=== PATIENT | female | born 1950 | race American Indian/Alaskan Native ===

== ENCOUNTER 2018-02-06 12:17 | Emergency (ER) | payer MEDICARE ==
[2018-02-06 13:39] VITALS: BP 152/119
[2018-02-06 14:33] LABS: Basophils # (Auto) 0.1 K/mm3 (0.0-0.1); Basophils % (Auto) 1.1 % (0.0-1.8); Eosinophils # (Auto) 0.2 K/mm3 (0.0-0.4); Eosinophils % (Auto) 3.7 % (0.0-4.3); Hematocrit 38.4 % (30.3-42.9); Hemoglobin 12.5 gm/dl (10.1-14.3); Lymphocytes # (Auto) 1.2 K/mm3 (1.2-5.4); Lymphocytes % (Auto) 19.8 % (13.4-35.0); Mean Corpuscular HGB Conc 32 % (30-34); Mean Corpuscular Hemoglobin 31 pg (28-32); Mean Corpuscular Volume 94 fl (79-97); Monocytes # (Auto) 0.4 K/mm3 (0.0-0.8); Platelet Count 259 K/mm3 (140-440); Red Blood Count 4.09 M/mm3 (3.65-5.03); Red Cell Distribution Width 15.1 % (13.2-15.2)
[2018-02-06 14:42] LABS: Amphetamine Screen,Urine PRESUMPTIVE NEGATIVE; Benzodiazepines Screen,Urine PRESUMPTIVE NEGATIVE; Bilirubin,Urine NEG (Negative); Blood,Urine NEG (Negative); Cannabinoid Screen,Urine PRESUMPTIVE NEGATIVE; Cocaine Screen,Urine PRESUMPTIVE NEGATIVE; Color,Urine Yellow (Yellow); Methadone Screen,Urine PRESUMPTIVE NEGATIVE; Mucus,Urine 3+ /HPF; Opiate Screen,Urine PRESUMPTIVE NEGATIVE; Protein,Urine <15 mg/dL mg/dL (Negative)
[2018-02-06 14:44] LABS: Calcium 9.5 mg/dL (8.4-10.2)
--- NOTE | 2018-02-06 20:08 | Emergency Department Report ---
ED Psych HPI - General Chief Complaint: Psych Stated Complaint: PSYCHIATRIC MED REFILL Time Seen by Provider: 02/06/18 20:07 Source: patient Mode of arrival: Ambulatory Limitations: No Limitations - History of Present Illness Initial Comments: Patient is here for the refill of her Psychiatric medication which is about to run out. She has no medical complaint. Associated Psychiatric Symptoms: auditory hallucinations History of same: Yes Quality: constant Improves With: medication Worsens With: none Associated Symptoms: denies other symptoms Treatments Prior to Arrival: none - Related Data Previous Rx's Medication Instructions Recorded Last Taken Type Benztropine [Cogentin] 1 mg PO BID #60 tab 02/06/18 Unknown Rx risperiDONE [RisperiDONE] 3 mg PO QHS #30 tablet 02/06/18 Unknown Rx Allergies Allergy/AdvReac Type Severity Reaction Status Date / Time No Known Allergies Allergy Verified 02/06/18 13:32 ED Review of Systems ROS: Stated complaint: PSYCHIATRIC MED REFILL Other details as noted in HPI Comment: All other systems reviewed and negative Constitutional: denies: chills, fever Eyes: denies: eye pain ENT: denies: ear pain Respiratory: denies: cough, shortness of breath Cardiovascular: denies: chest pain, palpitations, dyspnea on exertion Endocrine: no symptoms reported Gastrointestinal: denies: abdominal pain, nausea, vomiting, diarrhea, constipation Genitourinary: denies: urgency, dysuria, hematuria Musculoskeletal: denies: back pain Skin: denies: rash, lesions Neurological: denies: headache, weakness, numbness Psychiatric: denies: anxiety, depression Hematological/Lymphatic: denies: easy bleeding, easy bruising ED Past Medical Hx - Past Medical History Previous Medical History?: Yes Hx Psychiatric Treatment: Yes (schizophrenia) Hx Asthma: Yes - Surgical History Past Surgical History?: No - Social History Smoking Status: Never Smoker Substance Use Type: None - Medications Home Medications: Home Medications Medication Instructions Recorded Confirmed Last Taken Type Benztropine [Cogentin] 1 mg PO BID #60 tab 02/06/18 Unknown Rx risperiDONE [RisperiDONE] 3 mg PO QHS #30 tablet 02/06/18 Unknown Rx ED Physical Exam - General Limitations: No Limitations General appearance: alert, in no apparent distress - Head Head exam: Present: atraumatic, normocephalic, normal inspection - Eye Eye exam: Present: normal appearance, PERRL, EOMI Pupils: Present: normal accommodation - ENT ENT exam: Present: normal exam, normal orophraynx - Neck Neck exam: Present: normal inspection, full ROM. Absent: tenderness - Respiratory Respiratory exam: Present: normal lung sounds bilaterally. Absent: respiratory distress, wheezes, rales, rhonchi, stridor - Cardiovascular Cardiovascular Exam: Present: regular rate, normal rhythm, normal heart sounds - GI/Abdominal GI/Abdominal exam: Present: soft, normal bowel sounds. Absent: distended, tenderness, guarding, rebound - Extremities Exam Extremities exam: Present: normal inspection, full ROM, normal capillary refill - Back Exam Back exam: Present: normal inspection, full ROM. Absent: tenderness - Neurological Exam Neurological exam: Present: alert, oriented X3, CN II-XII intact - Psychiatric Psychiatric exam: Present: normal affect, normal mood - Skin Skin exam: Present: warm, dry, intact, normal color. Absent: rash ED Course Vital Signs 02/06/18 13:32 Temperature 97.9 F Pulse Rate 64 Respiratory 16 Rate Blood Pressure 152/119 O2 Sat by Pulse 96 Oximetry ED Medical Decision Making - Lab Data Result diagrams: 02/06/18 14:08 02/06/18 14:08 - Medical Decision Making Psychiatric Medication Refill. Critical care attestation.: If time is entered above; I have spent that time in minutes in the direct care of this critically ill patient, excluding procedure time. ED Disposition Clinical Impression: Medication refill, History of schizophrenia Disposition: - TO HOME OR SELFCARE Is pt being admited?: No Does the pt Need Aspirin: No Condition: Stable Instructions: Schizophrenia (ED) Additional Instructions: Please follow up with the Psychiatrist you have been referred to tomorrow morning. Return to the ED if your condition worsens. Prescriptions: risperiDONE [RisperiDONE] 3 mg PO QHS #30 tablet Benztropine [Cogentin] 1 mg PO BID #60 tab Referrals: SALVADOR FINK MD [Primary Care Provider] - 3-5 Days SINA LINDO MD [Referring] - 3-5 Days Time of Disposition: 21:01
== END 2018-02-06 21:36 | disposition home or self-care (01) ==
LOC: EDBD → ED 12:17
DX: Z76.0 Encounter for issue of repeat prescription (principal); F20.9 Schizophrenia, unspecified; J45.909 Unspecified asthma, uncomplicated; Z79.899 Other long term (current) drug therapy
CPT/HCPCS: 36415; 80048; 80307; 81001; 85025; 99284; G0480; 80320

== ENCOUNTER 2018-03-13 08:28 | Emergency (ER) | payer MEDICARE ==
--- NOTE | 2018-03-13 11:07 | Emergency Department Report ---
Chief Complaint: Medical Clearance Stated Complaint: MEDICATION REFILL Time Seen by Provider: 03/13/18 10:44 - HPI History of Present Illness: Patient is a 67-year-old female with past medical history schizophrenia who is here for medication refill. Patient has been out of her Risperdal and benztropine for today. Patient tried to see her primary care physician as needed she has lost all of her ID and they would not see her. Patient is here with granddaughter and is hoping to get a medication refill. Patient is not having homicidal suicidal ideations patient is very stable and feels fine today. - ROS Review of Systems: All other systems are reviewed and are negative - Exam Vital Signs: Vital Signs 03/13/18 09:30 Temperature 99.1 F Pulse Rate 72 Respiratory 18 Rate Blood Pressure 111/64 O2 Sat by Pulse 99 Oximetry Physical Exam: Patient is alert and oriented 3. Patient is no acute distress. Patient is breathing normally. Patient's skin has good color. MSE screening note: Focused history and physical exam performed. Due to findings the following was ordered: ED Medical Decision Making - Medical Decision Making Patient medications will be refilled. Patient's granddaughter states that she will try to take her within the next several days to get some type of ideas. ED Disposition for MSE Clinical Impression: Medication refill Disposition: DC-01 TO HOME OR SELFCARE Is pt being admited?: No Does the pt Need Aspirin: No Condition: Stable Prescriptions: risperiDONE [RisperiDONE] 3 mg PO QHS #30 tablet Benztropine [Cogentin] 1 mg PO BID #60 tab Referrals: PRIMARY CARE, [Primary Care Provider] - 3-5 Days Time of Disposition: 11:07
[2018-03-13 11:19] VITALS: BP 112/68
== END 2018-03-13 11:17 | disposition home or self-care (01) ==
LOC: ED 08:28
DX: F20.9 Schizophrenia, unspecified (principal); Z76.0 Encounter for issue of repeat prescription
CPT/HCPCS: 99282

== ENCOUNTER 2018-04-14 08:31 | Emergency (ER) | payer MEDICARE ==
--- NOTE | 2018-04-14 10:19 | Emergency Department Report ---
ED General Adult HPI - General Chief complaint: Upper Respiratory Infection Stated complaint: CHEST PAIN/COUGH Time Seen by Provider: 04/14/18 10:07 Source: patient, family Mode of arrival: Ambulatory Limitations: No Limitations - History of Present Illness Initial comments: Ms. Zepeda is a healthy 67-year-old female with a history of schizophrenia. This is her third monthly visit since January for medication refill. She requires medication Risperdal and benztropoine. She was previously living alone. However, she was placed in the home of an assigned caregiver. However she is currently unable to care for herself. She does have one relative, a brother in the [place]. Caregiver currently denies signs and symptoms of psychosis. No agitation or abnormal behavior from her baseline. Due to lack of ID such as security card or certificate, she is unable to utilize Medicare insurance. She's been unable to see psychiatrist without ID verification. Consequently caregiver brings Ms. Zepeda to the ED for medication refill. Patient has had nonproductive cough for the last week. No fever. No other symptoms. Chest pain noted on triage note. Patient denies chest pain or associated symptoms. Last doses of medications taken last night -: week(s) (1) Associated Symptoms: cough - Related Data Previous Rx's Medication Instructions Recorded Last Taken Type Benztropine [Cogentin] 1 mg PO BID #60 tab 04/14/18 Unknown Rx risperiDONE [RisperiDONE] 3 mg PO QHS #30 tablet 04/14/18 Unknown Rx Allergies Allergy/AdvReac Type Severity Reaction Status Date / Time No Known Allergies Allergy Verified 04/14/18 08:37 ED Review of Systems ROS: Stated complaint: CHEST PAIN/COUGH Other details as noted in HPI Comment: Unobtainable due to pts medical conditions (limited, patient will not cooperate with hx) Constitutional: denies: fever, malaise Respiratory: cough Cardiovascular: denies: chest pain ED Past Medical Hx - Past Medical History Hx Psychiatric Treatment: Yes (schizophrenia) Hx Asthma: Yes - Surgical History Past Surgical History?: No - Social History Smoking Status: Former Smoker Substance Use Type: None - Medications Home Medications: Home Medications Medication Instructions Recorded Confirmed Last Taken Type Benztropine [Cogentin] 1 mg PO BID #60 tab 04/14/18 Unknown Rx risperiDONE [RisperiDONE] 3 mg PO QHS #30 tablet 10/22/18 Unknown Rx ED Physical Exam - General Limitations: No Limitations General appearance: alert, in no apparent distress, other (no cough observed) - Head Head exam: Present: atraumatic, normocephalic - Eye Eye exam: Present: normal appearance - ENT ENT exam: Present: mucous membranes moist - Neck Neck exam: Present: normal inspection. Absent: tenderness, meningismus - Respiratory Respiratory exam: Present: normal lung sounds bilaterally. Absent: respiratory distress, wheezes, rales, rhonchi - Cardiovascular Cardiovascular Exam: Present: regular rate, normal rhythm, normal heart sounds. Absent: systolic murmur, diastolic murmur, rubs, gallop - GI/Abdominal GI/Abdominal exam: Present: soft, normal bowel sounds. Absent: distended, tenderness, guarding, rebound - Extremities Exam Extremities exam: Present: normal inspection - Back Exam Back exam: Present: normal inspection - Neurological Exam Neurological exam: Present: alert, oriented X3 - Psychiatric Psychiatric exam: Present: flat affect - Skin Skin exam: Present: warm, dry, intact, normal color. Absent: rash ED Course Vital Signs 04/14/18 08:37 Temperature 98.7 F Pulse Rate 102 H Respiratory 24 Rate Blood Pressure 137/85 O2 Sat by Pulse 97 Oximetry ED Medical Decision Making - Medical Decision Making Ms. Zepeda presents with cough and request for medication refill. Patient has normal lung exam. She is a former smoker. However do not suspect acute bronchitis or pneumonia at this time. Recommended supportive care. I have provided 30 day prescription including 2 refills. I have asked caregiver to contact patient's personal geothermal field technician to assist with health insurance issues, proper ID and access to healthcare. Critical care attestation.: If time is entered above; I have spent that time in minutes in the direct care of this critically ill patient, excluding procedure time. ED Disposition Clinical Impression: Medication refill, Schizophrenia, Cough Disposition: DC-01 TO HOME OR SELFCARE Is pt being admited?: No Does the pt Need Aspirin: No Condition: Stable Instructions: Acute Cough (ED) Additional Instructions: Please call egg caser for assistance. Prescriptions: risperiDONE [RisperiDONE] 3 mg PO QHS #30 tablet Benztropine [Cogentin] 1 mg PO BID #60 tab
[2018-04-14 10:59] VITALS: BP 124/71
== END 2018-04-14 10:52 | disposition home or self-care (01) ==
LOC: ED 08:31
DX: R05 Cough (principal); F20.9 Schizophrenia, unspecified; J45.909 Unspecified asthma, uncomplicated; Z76.0 Encounter for issue of repeat prescription; Z87.891 Personal history of nicotine dependence
CPT/HCPCS: 93005; 93010; 99282

== ENCOUNTER 2018-07-21 09:01 | Emergency (ER) | payer MEDICARE ==
--- NOTE | 2018-07-21 11:49 | Emergency Department Report ---
ED Recheck HPI - General Chief Complaint: Medical Clearance Stated Complaint: MED REFILL Source: patient, c++ professor (control cabinet assembler) Mode of arrival: Ambulatory Limitations: No Limitations - History of Present Illness Initial Comments: This is a 67 year-old female Is accompanied by her control cabinet assembler for medication refills. Patient lives in a personal fpc and does not have identification. The patient states she usually get refills every month in the emergency room. Denies pain, suicidal ideation or homicidal ideation, chest pain, or hallucinations. MD Complaint: medication refill request Returns Today for: request for prescription Context: ran out of medication Associated Symptoms: none - Related Data Previous Rx's Medication Instructions Recorded Last Taken Type Benztropine [Cogentin] 1 mg PO BID #60 tab 04/14/18 Unknown Rx risperiDONE [RisperiDONE] 3 mg PO QHS #30 tablet 04/14/18 Unknown Rx ALBUTEROL Inhaler(NF) [VENTOLIN 1 puff IH Q4-6H PRN #1 inha 07/21/18 Unknown Rx Inhaler(NF)] Benztropine [Cogentin] 1 mg PO BID #60 tab 07/21/18 Unknown Rx risperiDONE [RisperDAL] 3 mg PO QHS #30 tablet 07/21/18 Unknown Rx Allergies Allergy/AdvReac Type Severity Reaction Status Date / Time No Known Allergies Allergy Verified 04/14/18 08:37 ED Review of Systems ROS: Stated complaint: MED REFILL Other details as noted in HPI Constitutional: denies: chills, fever Respiratory: denies: cough, shortness of breath, wheezing Cardiovascular: denies: chest pain, palpitations Gastrointestinal: denies: abdominal pain, nausea, diarrhea Neurological: denies: headache, weakness, paresthesias Psychiatric: denies: anxiety, depression ED Past Medical Hx - Past Medical History Previous Medical History?: Yes Hx Psychiatric Treatment: Yes (schizophrenia) Hx Asthma: Yes - Surgical History Past Surgical History?: No - Social History Smoking Status: Never Smoker Substance Use Type: None - Medications Home Medications: Home Medications Medication Instructions Recorded Confirmed Last Taken Type Benztropine [Cogentin] 1 mg PO BID #60 tab 04/14/18 Unknown Rx risperiDONE [RisperiDONE] 3 mg PO QHS #30 tablet 04/14/18 Unknown Rx ALBUTEROL Inhaler(NF) [VENTOLIN 1 puff IH Q4-6H PRN #1 inha 07/21/18 Unknown Rx Inhaler(NF)] Benztropine [Cogentin] 1 mg PO BID #60 tab 07/21/18 Unknown Rx risperiDONE [RisperDAL] 3 mg PO QHS #30 tablet 07/21/18 Unknown Rx ED Physical Exam - General Limitations: No Limitations General appearance: alert, in no apparent distress - Respiratory Respiratory exam: Present: normal lung sounds bilaterally. Absent: respiratory distress - Cardiovascular Cardiovascular Exam: Present: regular rate, normal rhythm. Absent: systolic murmur, diastolic murmur, rubs, gallop - GI/Abdominal GI/Abdominal exam: Present: soft, normal bowel sounds - Neurological Exam Neurological exam: Present: alert, oriented X3 - Psychiatric Psychiatric exam: Present: normal affect, normal mood - Skin Skin exam: Present: warm, dry, intact, normal color. Absent: rash ED Course Vital Signs 07/21/18 09:15 Temperature 97.5 F L Pulse Rate 96 H Respiratory 18 Rate Blood Pressure 121/69 O2 Sat by Pulse 99 Oximetry ED Recheck MDM - Differential Diagnosis Prescription Refill(s) - Medical Decision Making Patient was examined by me. Vitals are normal and patient is in no acute distress. Patient informed of results. Start Cogentin, risperidone, and albuterol. Patient discharged home in stable condition. Follow up with PCP in 2-3 days. Critical care attestation.: If time is entered above; I have spent that time in minutes in the direct care of this critically ill patient, excluding procedure time. ED Disposition Clinical Impression: Encounter for medication refill Asthma Qualifiers: Asthma severity: mild Asthma persistence: intermittent Asthma complication type: uncomplicated Qualified Code(s): J45.20 - Mild intermittent asthma, uncomplicated Schizophrenia Qualifiers: Schizophrenia type: unspecified Qualified Code(s): F20.9 - Schizophrenia, unspecified Disposition: DC-01 TO HOME OR SELFCARE Is pt being admited?: No Does the pt Need Aspirin: No Condition: Stable Instructions: Asthma (ED), Schizophrenia (ED) Prescriptions: risperiDONE [RisperDAL] 3 mg PO QHS #30 tablet ALBUTEROL Inhaler(NF) [VENTOLIN Inhaler(NF)] 1 puff IH Q4-6H PRN #1 inha PRN Reason: Shortness Of Breath Benztropine [Cogentin] 1 mg PO BID #60 tab Referrals: EMMANUEL ROMEO MD [Primary Care Provider] - 3-5 Days [facility] [Outside] - 3-5 Days [facility] [Outside] - 3-5 Days Time of Disposition: 11:52
== END 2018-07-21 11:58 | disposition home or self-care (01) ==
LOC: ED 09:01
CPT/HCPCS: 99282

== ENCOUNTER 2020-05-28 01:15 | Observation (INO) | payer MEDICAID, MEDICARE ==
[2020-05-28] MEDS ORDERED: MAGNESIUM SULFATE 40GM/1000ML 40 GM/1,000 ML BAG IV ONE (01:46)
[2020-05-28] MEDS ORDERED: methylPREDNISolone Sod Succinate 125 MG/2 ML INJ IV ONE (01:46)
[2020-05-28] MEDS ORDERED: IPRATROPIUM/ALBUTEROL SULFATE 3 ML AMPUL.NEB IH ONE (01:46)
--- NOTE | 2020-05-28 01:47 | Emergency Department Report ---
ED Shortness of Breath HPI - General Chief Complaint: Dyspnea/Respdistress Stated Complaint: SOB Time Seen by Provider: 05/28/20 01:29 Source: patient, EMS Mode of arrival: Stretcher Limitations: No Limitations - History of Present Illness Initial Comments: Patient is a 69-year-old female that presents emergency room with worsening shortness of breath and cough. Patient states her cough is been going on for 3 days. Patient states she always has a little bit of shortness of breath but this is significantly worse. Patient states that her shortness of breath is better with rest and worse with exertion and movement. Patient states she has history of asthma and her asthma is been acting up. Patient denies chest pain. Patient states her cough is dry. Patient denies fever and chills. Patient denies recent travel. Patient denies recent international travel. Patient denies exposure to the novel coronavirus. Patient denies sick contacts. Patient denies fever and chills. Patient denies cough. Patient denies diarrhea. Patient denies coming in contact with anybody with symptoms of the novel coronavirus. MD Complaint: shortness of breath, cough -: Sudden Severity: severe Consistency: constant, other Improves With: rest Worsens With: lying flat, exertion Known History Of: asthma Associated Symptoms: cough - Related Data Previous Rx's Medication Instructions Recorded Last Taken Type Benztropine [Cogentin] 1 mg PO BID #60 tab 04/14/18 Unknown Rx risperiDONE [RisperiDONE] 3 mg PO QHS #30 tablet 04/14/18 Unknown Rx ALBUTEROL Inhaler(NF) [VENTOLIN 1 puff IH Q4-6H PRN #1 inha 07/21/18 Unknown Rx Inhaler(NF)] Benztropine [Cogentin] 1 mg PO BID #60 tab 07/21/18 Unknown Rx risperiDONE [RisperDAL] 3 mg PO QHS #30 tablet 07/21/18 Unknown Rx Allergies Allergy/AdvReac Type Severity Reaction Status Date / Time No Known Allergies Allergy Verified 04/14/18 08:37 ED Review of Systems ROS: Stated complaint: SOB Other details as noted in HPI Constitutional: denies: chills, fever Eyes: denies: eye pain, eye discharge, vision change ENT: denies: ear pain, throat pain Respiratory: see HPI, cough, shortness of breath, SOB with exertion, SOB at rest. denies: wheezing Cardiovascular: dyspnea on exertion. denies: chest pain, palpitations Endocrine: no symptoms reported Gastrointestinal: denies: abdominal pain, nausea, diarrhea Genitourinary: denies: urgency, dysuria, discharge Musculoskeletal: denies: back pain, joint swelling, arthralgia Skin: denies: rash, lesions Neurological: denies: headache, weakness, paresthesias Psychiatric: denies: anxiety, depression Hematological/Lymphatic: denies: easy bleeding, easy bruising ED Past Medical Hx - Past Medical History Previous Medical History?: Yes Hx Psychiatric Treatment: Yes (schizophrenia) Hx Asthma: Yes - Surgical History Past Surgical History?: No - Family History Family history: no significant - Social History Smoking Status: Never Smoker Substance Use Type: None - Medications Home Medications: Home Medications Medication Instructions Recorded Confirmed Last Taken Type Benztropine [Cogentin] 1 mg PO BID #60 tab 04/14/18 Unknown Rx risperiDONE [RisperiDONE] 3 mg PO QHS #30 tablet 04/14/18 Unknown Rx ALBUTEROL Inhaler(NF) [VENTOLIN 1 puff IH Q4-6H PRN #1 inha 07/21/18 Unknown Rx Inhaler(NF)] Benztropine [Cogentin] 1 mg PO BID #60 tab 07/21/18 Unknown Rx risperiDONE [RisperDAL] 3 mg PO QHS #30 tablet 07/21/18 Unknown Rx ED Physical Exam - General Limitations: No Limitations General appearance: alert, in distress - Head Head exam: Present: atraumatic, normocephalic - Eye Eye exam: Present: normal appearance - ENT ENT exam: Present: mucous membranes moist - Neck Neck exam: Present: normal inspection - Respiratory Respiratory exam: Present: respiratory distress, wheezes, decreased breath sounds - Cardiovascular Cardiovascular Exam: Present: regular rate, normal rhythm. Absent: systolic murmur, diastolic murmur, rubs, gallop - GI/Abdominal GI/Abdominal exam: Present: soft, normal bowel sounds - Extremities Exam Extremities exam: Present: normal inspection - Back Exam Back exam: Present: normal inspection - Neurological Exam Neurological exam: Present: alert, oriented X3 - Psychiatric Psychiatric exam: Present: normal affect, normal mood - Skin Skin exam: Present: warm, dry, intact, normal color. Absent: rash ED Course Vital Signs 05/28/20 05/28/20 05/28/20 01:35 02:01 02:39 Temperature 98.0 F Pulse Rate 68 75 Pulse Rate [ 77 Bilateral Throughout] Respiratory 18 16 Rate Respiratory 18 Rate [Bilateral Throughout] Blood Pressure 107/81 94/54 O2 Sat by Pulse 99 98 Oximetry 05/28/20 05/28/20 03:00 04:01 Temperature Pulse Rate 66 76 Pulse Rate [ Bilateral Throughout] Respiratory 19 14 Rate Respiratory Rate [Bilateral Throughout] Blood Pressure 113/52 126/45 O2 Sat by Pulse 99 99 Oximetry - Reevaluation(s) Reevaluation #1: Patient states he is feeling better with the breathing treatment. Patient is still requiring supplemental oxygen. 05/28/20 03:03 Reevaluation #2: I discussed all results with patient. I discussed plan of care with patient. Patient agrees with plan of care and admission. Patient to be admitted to the hospitalist service. 05/28/20 04:03 - Consultations Consultation #1: Hospitalist consulted for admission. Hospitalist to admit patient. 05/28/20 04:04 ED Medical Decision Making - Lab Data Result diagrams: 05/28/20 01:59 05/28/20 01:59 - EKG Data -: EKG Interpreted by Me EKG shows normal: sinus rhythm, axis, intervals, QRS complexes, ST-T waves Rate: normal - Radiology Data Radiology results: report reviewed, image reviewed interpreted by me: Chest x-ray: No pneumonia, no pneumothorax, no foreign body, no osseous findings, no acute findings CHEST 1 VIEW INDICATION / CLINICAL INFORMATION: Dyspnea. COMPARISON: None available. FINDINGS: SUPPORT DEVICES: None. HEART / MEDIASTINUM: No significant abnormality. LUNGS / PLEURA: No significant pulmonary or pleural abnormality. No pneumothorax. ADDITIONAL FINDINGS: No significant additional findings. IMPRESSION: 1. No acute findings. - Medical Decision Making Patient is a 69-year-old female who presents emergency room with complaints of shortness of breath. Patient has history of asthma. Patient on initial evaluation found to have wheezing throughout along with retractions. Patient given duo nebs, magnesium and Solu-Medrol. Patient also placed on supplemental oxygen. Patient's lung sounds improved with treatment. Patient's labs are unremarkable. Patient chest x-ray is negative for acute finding. Patient admit jericho to the hospital service for further evaluation and treatment. - Differential Diagnosis Shortness of breath, status asthmaticus, respiratory failure, Critical Care Time: Yes Critical care time in (mins) excluding proc time.: 35 Critical care attestation.: If time is entered above; I have spent that time in minutes in the direct care of this critically ill patient, excluding procedure time. Critical Care Time: 35 minutes ED Disposition Clinical Impression: SOB (shortness of breath) Status asthmaticus Qualifiers: Asthma severity: moderate Asthma persistence: persistent Qualified Code(s): J45.42 - Moderate persistent asthma with status asthmaticus Respiratory failure Qualifiers: Chronicity: acute Respiratory failure complication: hypoxia Qualified Code(s): J96.01 - Acute respiratory failure with hypoxia Disposition: 09 OP ADMIT IP TO THIS HOSP Is pt being admited?: Yes Does the pt Need Aspirin: No Condition: Critical Time of Disposition: 04:09
[2020-05-28] MEDS ORDERED: MAGNESIUM SULFATE 2 GM/50 ML BAG IV ONE (02:04)
--- NOTE | 2020-05-28 02:44 | XRay Report ---
CHEST 1 VIEW INDICATION / CLINICAL INFORMATION: Dyspnea. COMPARISON: None available. FINDINGS: SUPPORT DEVICES: None. HEART / MEDIASTINUM: No significant abnormality. LUNGS / PLEURA: No significant pulmonary or pleural abnormality. No pneumothorax. ADDITIONAL FINDINGS: No significant additional findings. IMPRESSION: 1. No acute findings. Signer Name: Simi Thomas MD Signed: 05/28/2020 2:39 AM Workstation Name: [id number]
[2020-05-28 02:50] LABS: Basophils # (Auto) 0.2 K/mm3 (0.0-0.1); Basophils % (Auto) 1.9 % (0.0-1.8); Eosinophils # (Auto) 0.7 K/mm3 (0.0-0.4); Eosinophils % (Auto) 7.4 % (0.0-4.3); Hematocrit 38.9 % (30.3-42.9); Hemoglobin 12.8 gm/dl (10.1-14.3); Lymphocytes # (Auto) 1.2 K/mm3 (1.2-5.4); Lymphocytes % (Auto) 12.4 % (13.4-35.0); Mean Corpuscular HGB Conc 33 % (30-34); Mean Corpuscular Volume 89 fl (79-97); Monocytes # (Auto) 0.6 K/mm3 (0.0-0.8); Platelet Count 370 K/mm3 (140-440); Red Blood Count 4.39 M/mm3 (3.65-5.03)
[2020-05-28 03:04] LABS: Creatine Kinase MB 5.6 ng/mL (0.0-4.0)
[2020-05-28 03:05] LABS: Albumin 3.7 g/dL (3.9-5); Calcium 9.8 mg/dL (8.4-10.2)
[2020-05-28] MEDS ORDERED: MORPHINE 2 MG/1 ML INJ IV PRN (04:17)
[2020-05-28] MEDS ORDERED: ONDANSETRON 4 MG/2 ML INJ IV PRN (04:17)
[2020-05-28] MEDS ORDERED: ACETAMINOPHEN 325 MG TAB PO PRN (04:17)
--- NOTE | 2020-05-28 04:23 | History and Physical Report ---
History of Present Illness Date of examination: 05/28/20 Date of admission: 05/28/2020 Chief complaint: Shortness of Breath History of present illness: 69-year-old female with known history of asthma and schizophrenia presenting to the emergency room today complaining of shortness of breath and cough which has been ongoing for the past 3 days. Symptoms are said to have been getting worse today and decided to report to the emergency room. Shortness of breath is worse on exertion and improves on resting. She had a cough which is nonproductive. Patient denies any fever or chills, no chest pain, no nausea or vomiting, no abdominal pain, no headache or dizziness. Patient denies any sick contacts and no recent travel. Denies any contact with anyone with COVID-19. Upon arrival in the emergency room patient was found to be wheezing, she was given multiple rounds of nebulizing treatments. Chest x-ray was unremarkable. Patient being admitted for asthma exacerbation. Past History Past Medical History: other (Asthma, Schizophrenia) Past Surgical History: No surgical history Social history: no significant social history Family history: no significant family history Medications and Allergies Allergies Allergy/AdvReac Type Severity Reaction Status Date / Time No Known Allergies Allergy Verified 04/14/18 08:37 Home Medications Medication Instructions Recorded Confirmed Last Taken Type Benztropine [Cogentin] 1 mg PO BID #60 tab 04/14/18 Unknown Rx risperiDONE [RisperiDONE] 3 mg PO QHS #30 tablet 04/14/18 Unknown Rx ALBUTEROL Inhaler(NF) [VENTOLIN 1 puff IH Q4-6H PRN #1 inha 07/21/18 Unknown Rx Inhaler(NF)] Benztropine [Cogentin] 1 mg PO BID #60 tab 07/21/18 Unknown Rx risperiDONE [RisperDAL] 3 mg PO QHS #30 tablet 07/21/18 Unknown Rx Active Meds: Active Medications Acetaminophen (Tylenol) 650 mg PO Q4H PRN PRN Reason: Pain MILD(1-3)/Fever >100.5/VARGAS Albuterol/Ipratropium (Duoneb *Not For Prn Use*) 1 ampul IH Q6HRT TIM Heparin Sodium (Porcine) (Heparin) 5,000 unit SUB-Q Q8HR TIM Methylprednisolone Sodium Succinate (Solu-Medrol) 40 mg IV Q8HR TIM Morphine Sulfate (Morphine) 2 mg IV Q4H PRN PRN Reason: Pain, Moderate (4-6) Ondansetron HCl (Zofran) 4 mg IV Q8H PRN PRN Reason: Nausea And Vomiting Sodium Chloride (Sodium Chloride Flush Syringe 10 Ml) 10 ml IV BID TIM Sodium Chloride (Sodium Chloride Flush Syringe 10 Ml) 10 ml IV PRN PRN PRN Reason: LINE FLUSH Review of Systems Constitutional: no fever, no chills Ears, nose, mouth and throat: no nasal congestion, no sore throat Cardiovascular: no chest pain, no palpitations Respiratory: cough, shortness of breath, wheezing Gastrointestinal: no abdominal pain, no nausea, no vomiting, no diarrhea Genitourinary Female: no flank pain, no dysuria, no hematuria Musculoskeletal: no neck pain, no low back pain Integumentary: no rash, no pruritis Neurological: no headaches, no confusion Psychiatric: no anxiety, no depression Exam - Constitutional Vitals: Temp Pulse Resp BP Pulse Ox 98.0 F 66 19 113/52 99 05/28/20 01:35 05/28/20 03:00 05/28/20 03:00 05/28/20 03:00 05/28/20 03:00 General appearance: Present: no acute distress, well-nourished - EENT Eyes: Present: PERRL, EOM intact. Absent: scleral icterus ENT: hearing intact, clear oral mucosa, dentition normal - Neck Neck: Present: supple, normal ROM - Respiratory Respiratory effort: normal Respiratory: bilateral: wheezing - Cardiovascular Rhythm: regular Heart Sounds: Present: S1 & S2. Absent: gallop, systolic murmur, diastolic murmur, rub - Extremities Extremities: no ischemia, pulses intact, pulses symmetrical, No edema, Full ROM Peripheral Pulses: within normal limits - Abdominal General gastrointestinal: Present: soft, non-tender, non-distended, normal bowel sounds. Absent: mass - Integumentary Integumentary: Present: clear, warm, dry - Musculoskeletal Musculoskeletal: strength equal bilaterally - Psychiatric Psychiatric: appropriate mood/affect, intact judgment & insight, memory intact, cooperative - Neurologic Neurologic: CNII-XII intact, no focal deficits, moves all extremities HEART Score - HEART Score Troponin: Troponin T < 0.010 ng/mL (0.00-0.029) 05/28/20 01:59 Results - Labs CBC & Chem 7: 05/28/20 01:59 05/28/20 01:59 Labs: Abnormal lab results 05/28/20 05/28/20 05/28/20 Range/Units 01:59 01:59 01:59 RDW 16.0 H (13.2-15.2) % Lymph % (Auto) 12.4 L (13.4-35.0) % Eos % (Auto) 7.4 H (0.0-4.3) % Baso % (Auto) 1.9 H (0.0-1.8) % Eos # (Auto) 0.7 H (0.0-0.4) K/mm3 Baso # (Auto) 0.2 H (0.0-0.1) K/mm3 Seg Neutrophils % 72.3 H (40.0-70.0) % BUN 20 H (7-17) mg/dL Glucose 103 H (65-100) mg/dL Total Creatine Kinase 214 H (30-135) units/L CK-MB (CK-2) 5.6 H (0.0-4.0) ng/mL Albumin 3.7 L (3.9-5) g/dL Assessment and Plan - Patient Problems (1) Status asthmaticus Current Visit: Yes Status: Acute Qualifiers: Asthma severity: moderate Asthma persistence: persistent Qualified Code(s): J45.42 - Moderate persistent asthma with status asthmaticus Plan to address problem: Patient placed on nebulizing treatments and IV steroids. We will keep O2 saturation greater or equal to 94%. (2) DVT prophylaxis Current Visit: Yes Status: Acute Plan to address problem: Patient placed on subcutaneous heparin. (3) Full code status Current Visit: Yes Status: Acute
[2020-05-28] MEDS: HEPARIN 5,000 UNIT/1 ML VIAL SUB-Q SCH ×3 (06:24→21:39)
[2020-05-28] MEDS: IPRATROPIUM/ALBUTEROL SULFATE 3 ML AMPUL.NEB IH SCH ×3 (09:16→20:25)
[2020-05-28] MEDS: methylPREDNISolone Sod Succinate 40 MG/1 ML INJ IV SCH ×2 (10:11→17:18)
--- NOTE | 2020-05-28 10:36 | Event Note ---
Date: 05/28/20 Patient seen and examined at bedside this morning. Patient admitted with shortness of breath and wheezing. She has a history of asthma. On steroids and antibiotics. Examination No shortness of breath or use of accessory muscles of respiration Chest -diffuse expiratory wheezes Plan Continue Solu-Medrol 40 mg every 8 for now COVID-19 rule out Continue oxygen supplementation as needed Pulmonology evaluation if not improved tomorrow
[2020-05-29] MEDS: methylPREDNISolone Sod Succinate 40 MG/1 ML INJ IV SCH ×3 (01:15→17:13)
[2020-05-29] MEDS: IPRATROPIUM/ALBUTEROL SULFATE 3 ML AMPUL.NEB IH SCH ×3 (02:11→14:08)
[2020-05-29] MEDS: HEPARIN 5,000 UNIT/1 ML VIAL SUB-Q SCH ×2 (06:00→13:29)
[2020-05-29 06:24] VITALS: BP 116/55
[2020-05-29 06:55] LABS: Hematocrit 38.3 % (30.3-42.9); Hemoglobin 12.6 gm/dl (10.1-14.3); Mean Corpuscular HGB Conc 33 % (30-34); Mean Corpuscular Volume 87 fl (79-97); Platelet Count 351 K/mm3 (140-440); Red Blood Count 4.42 M/mm3 (3.65-5.03); Red Cell Distribution Width 15.6 % (13.2-15.2)
[2020-05-29 07:05] LABS: INR 1.05 (0.87-1.13)
[2020-05-29 07:09] LABS: BUN/Creatinine Ratio 22; Blood Urea Nitrogen 20 mg/dL (7-17); Calcium 9.1 mg/dL (8.4-10.2); Hemolysis Index 4
[2020-05-29 10:47] LABS: Total Cells Counted 100
[2020-05-29 10:48] LABS: Eosinophils % (Manual) 0 % (0.0-4.3); RBC Morphology Normal
[2020-05-29 10:49] LABS: Platelet Estimate Consistent w Auto
--- NOTE | 2020-05-29 13:21 | Discharge Summary ---
Providers - Providers Date of Admission: 05/28/20 04:14 Date of discharge: 05/29/20 Attending physician: EDGARDO CALIX Primary care physician: ONBOARDING SPECIALIST Hospitalization Condition: Critical Hospital course: 69-year-old female that presents emergency room with worsening shortness of breath and cough. Patient states her cough is been going on for 3 days. Pat ient states she always has a little bit of shortness of breath but this is significantly worse. Patient states that her shortness of breath is better with rest and worse with exertion and movement. Patient states she has history of asthma and her asthma is been acting up. Patient denies chest pain. Patient states her cough is dry. Patient denies fever and chills. Patient denies recent travel. Patient denies recent international travel. Patient denies exposure to the novel coronavirus. Patient denies sick contacts. Patient denies fever and chills. Patient denies cough. Patient denies diarrhea. Patient denies coming in contact with anybody with symptoms of the novel coronavirus. Here patient was admitted for acute asthma exacerbation and started on steroids. Patient symptoms have improved. Her COVID-19 test is negative. Patient will be discharged on steroid taper and follow-up with her PCP. She is able to ambulate without any hypoxia. She is currently stable to be discharged to follow-up her appointment. Disposition: - TO HOME OR SELFCARE Time spent for discharge: 35 mins - Discharge Diagnoses (1) Respiratory failure Status: Acute Qualifiers: Chronicity: acute Respiratory failure complication: hypoxia Qualified Code(s): J96.01 - Acute respiratory failure with hypoxia (2) SOB (shortness of breath) Status: Acute (3) Status asthmaticus Status: Acute Qualifiers: Asthma severity: moderate Asthma persistence: persistent Qualified Code(s): J45.42 - Moderate persistent asthma with status asthmaticus Core Measure Documentation - Palliative Care Palliative Care/ Comfort Measures: Not Applicable - Core Measures Any of the following diagnoses?: none Exam - Constitutional Vitals: Temp Pulse Resp BP Pulse Ox 98.1 F 98 H 18 116/55 94 05/29/20 06:23 05/29/20 08:50 05/29/20 08:50 05/29/20 06:23 05/29/20 06:23 General appearance: Present: no acute distress, well-nourished - EENT Eyes: Present: PERRL ENT: hearing intact, clear oral mucosa - Neck Neck: Present: supple, normal ROM - Respiratory Respiratory effort: normal Respiratory: bilateral: wheezing (improved) - Cardiovascular Heart Sounds: Present: S1 & S2. Absent: rub, click - Extremities Extremities: pulses symmetrical, No edema Peripheral Pulses: within normal limits - Abdominal General gastrointestinal: Present: soft, non-tender, non-distended, normal bowel sounds Female genitourinary: Present: normal - Integumentary Integumentary: Present: clear, warm, dry - Musculoskeletal Musculoskeletal: gait normal, strength equal bilaterally - Psychiatric Psychiatric: appropriate mood/affect, intact judgment & insight - Neurologic Neurologic: CNII-XII intact, moves all extremities Plan Diet: low salt Additional Instructions: Continue prednisone taper as ordered. Follow up with PCP in 1 week Follow up with: PRIMARY CARE, [Primary Care Provider] - 7 Days Prescriptions: predniSONE [Deltasone] 40 mg PO BID #17 tablet
== END 2020-05-29 17:30 | disposition home or self-care (01) ==
LOC: ED 01:15 → 3A 04:14
PROVIDERS: ADMIT Internal Medicine Geriatric Medicine; ATTEND Internal Medicine
DX: J45.42 Moderate persistent asthma with status asthmaticus (principal); Z20.828 Contact with and (suspected) exposure to other viral communicable diseases; J96.01 Acute respiratory failure with hypoxia; F20.9 Schizophrenia, unspecified; Z79.899 Other long term (current) drug therapy
CPT/HCPCS: 36415; 71045; 80048; 80053; 82140; 82550; 82553; 82962; 84484; 85025; 85610; 93005; 94640; 96365; 96372; 96375; 96376; 99291; G0378; J1644; J2920; J2930; J3475; U0003; 85007; 94644

== ENCOUNTER 2020-12-06 07:41 | Emergency (ER) | payer MEDICARE ==
--- NOTE | 2020-12-06 13:58 | XRay Report ---
CHEST 2 VIEWS INDICATION / CLINICAL INFORMATION: shortness of breath. COMPARISON: One view of the chest from 09/27/2019 FINDINGS: SUPPORT DEVICES: None. HEART / MEDIASTINUM: Stable. LUNGS / PLEURA: Faint interstitial opacities are again seen along the left lung base with otherwise c lear lungs. No significant pleural effusion. No pneumothorax. ADDITIONAL FINDINGS: The bones are unchanged. IMPRESSION: 1. No acute abnormality of the chest. 2. Additional findings as above. Signer Name: mIer Love MD Signed: 12/06/2020 1:54 PM Workstation Name: [email or web address]
[2020-12-06 15:29] LABS: Basophils # (Auto) 0.1 K/mm3 (0.0-0.1); Basophils % (Auto) 1.2 % (0.0-1.8); Eosinophils # (Auto) 0.6 K/mm3 (0.0-0.4); Eosinophils % (Auto) 7.3 % (0.0-4.3); Hematocrit 43.1 % (30.3-42.9); Hemoglobin 14.2 gm/dl (10.1-14.3); Lymphocytes # (Auto) 1.9 K/mm3 (1.2-5.4); Lymphocytes % (Auto) 23.6 % (13.4-35.0); Mean Corpuscular HGB Conc 33 % (30-34); Mean Corpuscular Volume 89 fl (79-97); Monocytes # (Auto) 0.6 K/mm3 (0.0-0.8); Monocytes % (Auto) 7.9 % (0.0-7.3); Platelet Count 294 K/mm3 (140-440); Red Blood Count 4.86 M/mm3 (3.65-5.03)
[2020-12-06 15:55] LABS: Alanine Aminotransferase 8 units/L (7-56); BUN/Creatinine Ratio 17; Blood Urea Nitrogen 15 mg/dL (7-17); Calcium 9.5 mg/dL (8.4-10.2); Hemolysis Index 16
[2020-12-06] MEDS ORDERED: IPRATROPIUM 0.02% NEBU 2.5 ML IH ONE (16:52)
[2020-12-06] MEDS ORDERED: ALBUTEROL 2.5 MG/3 ML NEBU IH ONE (16:52)
[2020-12-06] MEDS ORDERED: MAGNESIUM SULFATE 2 GM/50 ML BAG IV ONE (16:52)
[2020-12-06] MEDS ORDERED: methylPREDNISolone Sod Succinate 125 MG/2 ML INJ IV ONE (16:52)
--- NOTE | 2020-12-06 17:09 | Emergency Department Report ---
ED Shortness of Breath HPI - General Chief Complaint: Dyspnea/Respdistress Stated Complaint: ISAURO Time Seen by Provider: 12/06/20 16:46 Source: patient Mode of arrival: Ambulatory Limitations: No Limitations - History of Present Illness Initial Comments: 69-year-old female, history of schizophrenia, asthma, presents to the ED with difficulty breathing. Patient presented last night via EMS. Was given nebulizer treatment in route. Patient is currently waiting for 9 hours. Patient is currently wheezing again. She denies any fever, reports cough and chest tightness. Patient denies any tobacco use. Patient reports she has been fully vaccinated against COVID-19. MD Complaint: shortness of breath, "asthma attack" -: Last night Severity: moderate Consistency: constant Improves With: bronchodilators Worsens With: nothing, exertion Known History Of: asthma Associated Symptoms: cough Treatments Prior to Arrival: bronchodilator - Related Data Home Oxygen Therapy: No Previous Rx's Medication Instructions Recorded Last Taken Type Benztropine [Cogentin] 1 mg PO BID #60 tab 04/14/18 Unknown Rx risperiDONE [RisperiDONE] 3 mg PO QHS #30 tablet 04/14/18 Unknown Rx ALBUTEROL Inhaler(NF) [VENTOLIN 1 puff IH Q4-6H PRN #1 inha 07/21/18 Unknown Rx Inhaler(NF)] Benztropine [Cogentin] 1 mg PO BID #60 tab 07/21/18 Unknown Rx risperiDONE [RisperDAL] 3 mg PO QHS #30 tablet 07/21/18 Unknown Rx predniSONE [Deltasone] 40 mg PO BID #17 tablet 05/29/20 Unknown Rx Albuterol Sulfate [Proventil Hfa] 2 puff IH Q4HR PRN #1 hfa.aer.ad 12/06/20 Un known Rx predniSONE [Deltasone] 50 mg PO QDAY #5 tab 12/06/20 Unknown Rx Allergies Allergy/AdvReac Type Severity Reaction Status Date / Time No Known Allergies Allergy Verified 04/14/18 08:37 ED Review of Systems ROS: Stated complaint: ISAURO Other details as noted in HPI Comment: All other systems reviewed and negative Constitutional: denies: chills, fever Respiratory: cough, shortness of breath, wheezing Cardiovascular: chest pain ED Past Medical Hx - Past Medical History Previous Medical History?: Yes Hx Psychiatric Treatment: Yes (schizophrenia) Hx Asthma: Yes - Social History Smoking Status: Never Smoker - Medications Home Medications: Home Medications Medication Instructions Recorded Confirmed Last Taken Type Benztropine [Cogentin] 1 mg PO BID #60 tab 04/14/18 05/28/20 Unknown Rx risperiDONE [RisperiDONE] 3 mg PO QHS #30 tablet 04/14/18 05/28/20 Unknown Rx ALBUTEROL Inhaler(NF) [VENTOLIN 1 puff IH Q4-6H PRN #1 inha 07/21/18 05/28/20 Unknown Rx Inhaler(NF)] Benztropine [Cogentin] 1 mg PO BID #60 tab 07/21/18 05/28/20 Unknown Rx risperiDONE [RisperDAL] 3 mg PO QHS #30 tablet 07/21/18 05/28/20 Unknown Rx predniSONE [Deltasone] 40 mg PO BID #17 tablet 05/29/20 Unknown Rx Albuterol Sulfate [Proventil Hfa] 2 puff IH Q4HR PRN #1 hfa.aer.ad 12/06/20 Unknown Rx predniSONE [Deltasone] 50 mg PO QDAY #5 tab 12/06/20 Unknown Rx ED Physical Exam - General Limitations: No Limitations General appearance: alert, in no apparent distress - Head Head exam: Present: atraumatic, normocephalic - Eye Eye exam: Present: normal appearance, EOMI - ENT ENT exam: Present: mucous membranes moist - Neck Neck exam: Present: normal inspection - Respiratory Respiratory exam: Present: wheezes - Cardiovascular Cardiovascular Exam: Present: regular rate, normal rhythm - GI/Abdominal GI/Abdominal exam: Present: soft. Absent: distended, tenderness - Extremities Exam Extremities exam: Present: normal inspection. Absent: pedal edema, calf tenderness - Neurological Exam Neurological exam: Present: alert, oriented X3 - Psychiatric Psychiatric exam: Present: normal affect, normal mood - Skin Skin exam: Present: warm, dry, intact, normal color ED Course Vital Signs 12/06/20 12/06/20 12/06/20 08:09 17:34 17:40 Temperature 98.4 F Pulse Rate 89 93 H Pulse Rate [ 96 H Anterior Bilateral Throughout] Respiratory 20 20 Rate Respiratory 26 H Rate [Anterior Bilateral Throughout] Blood Pressure 120/74 Blood Pressure 103/83 [Left] O2 Sat by Pulse 95 Oximetry 12/06/20 12/06/20 12/07/20 18:21 19:59 00:00 Temperature 97.5 F L Pulse Rate 85 88 86 Pulse Rate [ Anterior Bilateral Throughout] Respiratory 18 18 17 Rate Respiratory Rate [Anterior Bilateral Throughout] Blood Pressure Blood Pressure 119/95 109/49 121/88 [Left] O2 Sat by Pulse 95 97 Oximetry ED Medical Decision Making - Lab Data Result diagrams: 12/06/20 15:07 12/06/20 15:07 - EKG Data -: EKG Interpreted by Me EKG shows normal: sinus rhythm, axis, intervals, QRS complexes, ST-T waves Rate: normal - EKG Data Interpretation: no acute changes - Radiology Data Radiology results: report reviewed, image reviewed - Medical Decision Making Patient presented to ED with acute asthma exacerbation. She was given IV Solu- Medrol, mag sulfate, and albuterol/Atrovent nebulizer treatments. Patient is feeling much better at this time. Wheezing has resolved. O2 sats are normal. Chest x-ray is unremarkable. Patient will be discharged at this time with prescriptions. Outpatient follow-up advised, return precautions given. - Differential Diagnosis CHF, pneumonia, ACS Critical care attestation.: If time is entered above; I have spent that time in minutes in the direct care of this critically ill patient, excluding procedure time. ED Disposition Clinical Impression: Acute asthma exacerbation Disposition: - TO HOME OR SELFCARE Is pt being admited?: No Condition: Stable Instructions: Asthma, Adult, [id number] Prescriptions: predniSONE [Deltasone] 50 mg PO QDAY #5 tab Albuterol Sulfate [Proventil Hfa] 2 puff IH Q4HR PRN #1 hfa.aer.ad PRN Reason: Wheezing Referrals: SALVADOR FINK MD [Primary Care Provider] - 3-5 Days [facility] [Provider Group] - 3-5 Days SUNG BELLAMY MD [Staff Physician] - 3-5 Days Time of Disposition: 18:34
[2020-12-07 00:01] VITALS: BP 121/88
--- NOTE | 2020-12-09 19:03 | Electrocardiograph Report ---
[facility] Test Date: 2020-12-06 Test Time: 10:55:41 Pat Name: CHILANGO LOPEZ Department: Room: Gender: F Feeder Associate: MILLICENT : 1950 Requested By: JAH DUNNE Order Number: [id number] Reading MD: Luis Sosa Measurements Intervals [place] Rate: 72 P: 93 [place]: 122 QRS: 83 QRSD: 79 T: 84 QT: 378 QTc: 414 Interpretive Statements Sinus rhythm No previous ECG available for comparison Electronically Signed On 12-09-2020 19:03:10 EDT by Luis Sosa
--- NOTE | 2020-12-09 19:13 | Electrocardiograph Report ---
[facility] Test Date: 2020-12-06 Test Time: 18:16:19 Pat Name: CHILANGO LOPEZ Department: Room: Gender: F [employer]ence [employer] Instructor: NISA : 1950 Requested By: CECILIA DU Order Number: [id number] Reading MD: Luis Sosa Measurements Intervals [place] Rate: 78 P: 79 [place]: 121 QRS: 69 QRSD: 87 T: 36 QT: 400 QTc: 456 Interpretive Statements Sinus rhythm Nonspecific T abnormalities, lateral leads Compared to ECG 12/06/2020 10:55:41 T-wave abnormality now present Electronically Signed On 12-09-2020 19:13:24 EDT by Luis Sosa
== END 2020-12-07 00:02 | disposition home or self-care (01) ==
LOC: ED 07:41
DX: J45.901 Unspecified asthma with (acute) exacerbation (principal); F20.9 Schizophrenia, unspecified; Z79.899 Other long term (current) drug therapy
CPT/HCPCS: 36415; 71046; 80053; 83880; 84484; 85025; 93005; 94640; 96365; 96375; 99284; J2930; J3475; 94644

== ENCOUNTER 2021-05-21 21:02 | Emergency (ER) | payer MEDICARE ==
[2021-05-21] MEDS ORDERED: methylPREDNISolone Sod Succinate 125 MG/2 ML INJ IV ONE (22:01)
[2021-05-21] MEDS ORDERED: ALBUTEROL 2.5 MG/3 ML NEBU IH ONE (22:01)
[2021-05-21] MEDS ORDERED: IPRATROPIUM 0.02% NEBU 2.5 ML IH ONE (22:01)
--- NOTE | 2021-05-21 22:05 | Emergency Department Report ---
ED Chest Pain HPI - General Chief Complaint: Chest Pain Stated Complaint: CHEST PAIN/SHORTNESS OF BREATH Time Seen by Provider: 05/21/21 21:56 Source: EMS Mode of arrival: Stretcher Limitations: No Limitations - History of Present Illness Initial Comments: 70-year-old female, history of asthma, schizophrenia, presents to ED with complaint of chest pain. Patient states she thinks her chest pain started on yesterday. She states it is located in the mid chest, sharp in nature. She denies any aggravating or alleviating factors. Patient reports she has been having some wheezing. Patient states she does not use inhalers at home. She denies any cough or fever. Patient reports she lives in a personal chcf. MD Complaint: chest pain -: days(s) (2) Onset: during rest Pain Location: substernal Pain Radiation: none Severity: mild Quality: sharp Consistency: constant Improves With: nothing Worsens With: nothing re: dyspnea. denies: nausea, vomting, diaphoresis Other Symptoms: denies: cough, fever - Related Data Previous Rx's Medication Instructions Recorded Last Taken Type Benztropine [Cogentin] 1 mg PO BID #60 tab 04/14/18 Unknown Rx risperiDONE [RisperiDONE] 3 mg PO QHS #30 tablet 04/14/18 Unknown Rx ALBUTEROL Inhaler(NF) [VENTOLIN 1 puff IH Q4-6H PRN #1 inha 07/21/18 Unknown Rx Inhaler(NF)] Benztropine [Cogentin] 1 mg PO BID #60 tab 07/21/18 Unknown Rx risperiDONE [RisperDAL] 3 mg PO QHS #30 tablet 07/21/18 Unknown Rx predniSONE [Deltasone] 40 mg PO BID #17 tablet 05/29/20 Unknown Rx Albuterol Sulfate [Proventil Hfa] 2 puff IH Q4HR PRN #1 hfa.aer.ad 12/06/20 U nknown Rx predniSONE [Deltasone] 50 mg PO QDAY #5 tab 12/06/20 Unknown Rx Albuterol Sulfate [Proventil Hfa] 2 puff IH Q4HR PRN #1 hfa.aer.ad 05/22/21 Unknown Rx predniSONE [Deltasone] 50 mg PO QDAY #5 tab 05/22/21 Unknown Rx Allergies Allergy/AdvReac Type Severity Reaction Status Date / Time No Known Allergies Allergy Verified 05/21/21 21:06 Heart Score - HEART Score History: Slightly suspicious EKG: Normal Age: > 65 Risk factors: 1-2 risk factors Troponin: < normal limit HEART Score: 3 - EKG Read Time Time EKG Completed: 23:10 EKG Read Time: 23:11 ED Review of Systems ROS: Stated complaint: CHEST PAIN/SHORTNESS OF BREATH Other details as noted in HPI Comment: All other systems reviewed and negative Constitutional: denies: chills, fever Respiratory: shortness of breath, wheezing. denies: cough Cardiovascular: chest pain ED Past Medical Hx - Past Medical History Hx Psychiatric Treatment: Yes (schizophrenia) Hx Asthma: Yes - Social History Smoking Status: Never Smoker - Medications Home Medications: Home Medications Medication Instructions Recorded Confirmed Last Taken Type Benztropine [Cogentin] 1 mg PO BID #60 tab 04/14/18 05/28/20 Unknown Rx risperiDONE [RisperiDONE] 3 mg PO QHS #30 tablet 04/14/18 05/28/20 Unknown Rx ALBUTEROL Inhaler(NF) [VENTOLIN 1 puff IH Q4-6H PRN #1 inha 07/21/18 05/28/20 Unknown Rx Inhaler(NF)] Benztropine [Cogentin] 1 mg PO BID #60 tab 07/21/18 05/28/20 Unknown Rx risperiDONE [RisperDAL] 3 mg PO QHS #30 tablet 07/21/18 05/28/20 Unknown Rx predniSONE [Deltasone] 40 mg PO BID #17 tablet 05/29/20 Unknown Rx Albuterol Sulfate [Proventil Hfa] 2 puff IH Q4HR PRN #1 hfa.aer.ad 12/06/20 Unknown Rx predniSONE [Deltasone] 50 mg PO QDAY #5 tab 12/06/20 Unknown Rx Albuterol Sulfate [Proventil Hfa] 2 puff IH Q4HR PRN #1 hfa.aer.ad 05/22/21 Unknown Rx predniSONE [Deltasone] 50 mg PO QDAY #5 tab 05/22/21 Unknown Rx ED Physical Exam - General Limitations: No Limitations General appearance: alert, in no apparent distress - Head Head exam: Present: atraumatic, normocephalic - Eye Eye exam: Present: normal appearance, EOMI - ENT ENT exam: Present: mucous membranes moist - Neck Neck exam: Present: normal inspection - Respiratory Respiratory exam: Present: wheezes - Cardiovascular Cardiovascular Exam: Present: regular rate, normal rhythm - GI/Abdominal GI/Abdominal exam: Present: soft. Absent: distended, tenderness - Extremities Exam Extremities exam: Present: normal inspection. Absent: pedal edema, calf tenderness - Neurological Exam Neurological exam: Present: alert, oriented X3 - Psychiatric Psychiatric exam: Present: normal affect, normal mood - Skin Skin exam: Present: warm, dry, intact, normal color ED Course Vital Signs 05/21/21 05/21/21 05/22/21 21:05 22:13 01:30 Temperature 98.7 F 98.2 F Pulse Rate 100 H 63 Pulse Rate [ 83 Bilateral Throughout] Respiratory 19 15 Rate Respiratory 20 Rate [Bilateral Throughout] Blood Pressure 145/89 138/72 [Left] O2 Sat by Pulse 100 99 Oximetry ED Medical Decision Making - Lab Data Result diagrams: 05/21/21 23:44 05/21/21 23:44 - EKG Data -: EKG Interpreted by Sd EKG shows normal: sinus rhythm, axis, intervals, QRS complexes, ST-T waves Rate: normal - EKG Data Interpretation: no acute changes - Radiology Data Radiology results: report reviewed, image reviewed - Medical Decision Making 70-year-old female presents to ED with chest pain and wheezing. Patient has history of asthma. Nebulizer treatment given along with Solu-Medrol. Chest x- ray is normal. EKG normal, no ST changes present. Troponin negative x2. Patient comfortable, feeling much better following nebulizer treatment. She reports chest pain has resolved. Patient sleeping comfortably on stretcher. She will be discharged at this time. Outpatient follow-up advised, return preca utions given. - Differential Diagnosis ACS, pneumonia, asthma Critical care attestation.: If time is entered above; I have spent that time in minutes in the direct care of this critically ill patient, excluding procedure time. ED Disposition Clinical Impression: Acute chest pain, Acute asthma exacerbation Disposition: HOME / SELF CARE / HOMELESS Is pt being admited?: No Condition: Stable Instructions: Chest Pain (ED) Prescriptions: predniSONE [Deltasone] 50 mg PO QDAY #5 tab Albuterol Sulfate [Proventil Hfa] 2 puff IH Q4HR PRN #1 hfa.aer.ad PRN Reason: Wheezing Referrals: PRIMARY CARE, [Primary Care Provider] - 3-5 Days [facility] [Provider Group] - 3-5 Days
--- NOTE | 2021-05-21 23:20 | XRay Report ---
CHEST 1 VIEW 05/21/2021 10:13 PM INDICATION / CLINICAL INFORMATION: Shortness of breath. COMPARISON: 12/06/20. FINDINGS: SUPPORT DEVICES: None. HEART / MEDIASTINUM: The heart size and pulmonary vasculature are normal. LUNGS / PLEURA: The lungs are mildly hyperinflated. There are probable mild bullous changes in the ri ght upper lung zone. Minimal bibasilar chronic interstitial lung disease is stable. No pneumothorax. ADDITIONAL FINDINGS: No significant additional findings. IMPRESSION: COPD without acute abnormality. Signer Name: Yanick Hummel MD Signed: 05/21/2021 11:16 PM Workstation Name: [id number]
[2021-05-22 00:04] LABS: Basophils # (Auto) 0.1 K/mm3 (0.0-0.1); Eosinophils % (Auto) 12.5 % (0.0-4.3); Lymphocytes # (Auto) 1.3 K/mm3 (1.2-5.4); Lymphocytes % (Auto) 16.4 % (13.4-35.0); Mean Corpuscular HGB Conc 31 % (30-34); Mean Corpuscular Volume 88 fl (79-97); Monocytes # (Auto) 0.6 K/mm3 (0.0-0.8); Monocytes % (Auto) 7.6 % (0.0-7.3); Platelet Count 292 K/mm3 (140-440); Red Blood Count 4.44 M/mm3 (3.65-5.03); Red Cell Distribution Width 15.9 % (13.2-15.2)
[2021-05-22 00:05] LABS: Hematocrit 38.8 % (30.3-42.9); Hemoglobin 11.9 gm/dl (10.1-14.3)
[2021-05-22 00:39] LABS: BUN/Creatinine Ratio 18; Blood Urea Nitrogen 14 mg/dL (7-17); Calcium 8.7 mg/dL (8.4-10.2); Hemolysis Index 6
[2021-05-22] MEDS ORDERED: methylPREDNISolone Sod Succinate 125 MG/2 ML INJ IV ONE (02:00)
[2021-05-22 06:59] VITALS: BP 132/76
== END 2021-05-22 07:45 | disposition home or self-care (01) ==
LOC: ED 21:02
DX: J45.901 Unspecified asthma with (acute) exacerbation (principal); F20.9 Schizophrenia, unspecified; Z98.890 Other specified postprocedural states; Z79.899 Other long term (current) drug therapy
CPT/HCPCS: 36415; 71045; 80048; 83880; 84484; 85025; 93005; 94640; 96374; 96375; 99284; J2930; 94644

== ENCOUNTER 2021-10-09 04:52 | Emergency (ER) | payer MEDICARE ==
[2021-10-09] MEDS ORDERED: IPRATROPIUM 0.02% NEBU 2.5 ML IH ONE ×2 (07:01→09:08)
[2021-10-09] MEDS ORDERED: ALBUTEROL 2.5 MG/3 ML NEBU IH ONE ×2 (07:01→09:08)
[2021-10-09] MEDS ORDERED: MAGNESIUM SULFATE 2 GM/50 ML BAG IV ONE (07:01)
--- NOTE | 2021-10-09 07:07 | Emergency Department Report ---
HPI - General Chief Complaint: Dyspnea/Respdistress Time Seen by Provider: 10/09/21 06:55 - HPI HPI: Room 19 Patient is a 70-year-old female presenting with a chief complaint of wheezing. Patient has a history of COPD and is on 2 L nasal cannula home O2. 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 Patient was administered albuterol 5 mg prior to arrival. Patient stated initially she still feels better but then in the next sentence states she does not currently have shortness of breath ED Past Medical Hx - Past Medical History Previous Medical History?: Yes Hx Psychiatric Treatment: Yes (schizophrenia) Hx Asthma: Yes Hx COPD: Yes (2 L home O2) - Surgical History Past Surgical History?: No - Family History Family history: no significant - Social History Smoking Status: Never Smoker Substance Use Type: None - Medications Home Medications: Home Medications Medication Instructions Recorded Confirmed Last Taken Type Benztropine [Cogentin] 1 mg PO BID #60 tab 04/14/18 05/28/20 Unknown Rx risperiDONE [RisperiDONE] 3 mg PO QHS #30 tablet 04/14/18 05/28/20 Unknown Rx ALBUTEROL Inhaler(NF) [VENTOLIN 1 puff IH Q4-6H PRN #1 inha 07/21/18 05/28/20 Unknown Rx Inhaler(NF)] Benztropine [Cogentin] 1 mg PO BID #60 tab 07/21/18 05/28/20 Unknown Rx risperiDONE [RisperDAL] 3 mg PO QHS #30 tablet 07/21/18 05/28/20 Unknown Rx predniSONE [Deltasone] 40 mg PO BID #17 tablet 05/29/20 Unknown Rx Albuterol Sulfate [Proventil Hfa] 2 puff IH Q4HR PRN #1 hfa.aer.ad 12/06/20 Unknown Rx predniSONE [Deltasone] 50 mg PO QDAY #5 tab 12/06/20 Unknown Rx Albuterol Sulfate [Proventil Hfa] 2 puff IH Q4HR PRN #1 hfa.aer.ad 05/22/21 Unknown Rx predniSONE [Deltasone] 50 mg PO QDAY #5 tab 05/22/21 Unknown Rx Albuterol Mdi (or & Nicu Only) 2 puff IH QID PRN #8.5 gram 10/09/21 Unknown Rx [ProAir HFA Inhaler] Azithromycin [Zithromax Z-CHRISTINE] 0 mg PO DAILY #6 tab 10/09/21 Unknown Rx Prednisone [predniSONE 10 mg 10 mg PO .TAPER #1 10/09/21 Unknown Rx (6-Day Pack, 21 Tabs)] ED Review of Systems ROS: Stated complaint: ASTHMA/ISAURO Other details as noted in HPI Constitutional: no symptoms reported Eyes: denies: eye pain ENT: denies: throat pain Respiratory: shortness of breath, wheezing Endocrine: no symptoms reported Gastrointestinal: denies: abdominal pain Genitourinary: denies: dysuria Musculoskeletal: denies: back pain Neurological: denies: headache Physical Exam - Physical Exam Vital Signs: Vital Signs 10/09/21 05:54 Temperature 97.4 F L Pulse Rate 87 Respiratory 18 Rate Blood Pressure 123/73 O2 Sat by Pulse 96 Oximetry Physical Exam: GENERAL: The patient is well-developed well-nourished female lying on stretcher not appearing to be in acute distress. [] HEENT: Normocephalic. Atraumatic. Extraocular motions are intact. Patient has moist mucous membranes. NECK: Supple. Trachea midline CHEST/LUNGS: Diffuse faint wheezing. There is no respiratory distress noted. HEART/CARDIOVASCULAR: Regular. There is no tachycardia. There is no gallop rub or murmur. ABDOMEN: Abdomen is soft, nontender. Patient has normal bowel sounds. There is no abdominal distention. SKIN: There is no rash. There is no edema. There is no diaphoresis. NEURO: The patient is awake and alert. The patient is cooperative. The patient has no focal neurologic deficits. The patient has normal speech. GCS 15 MUSCULOSKELETAL: There is no evidence of acute injury. ED Course Vital Signs 10/09/21 05:54 Temperature 97.4 F L Pulse Rate 87 Respiratory 18 Rate Blood Pressure 123/73 O2 Sat by Pulse 96 Oximetry - Reevaluation(s) Reevaluation #1: 10/09/21 11:29 Patient resting comfortably ED Medical Decision Making - Radiology Data Radiology results: report reviewed (Chest x-ray), image reviewed (Chest x-ray) interpreted by me: Chest x-ray-no definite focal infiltrates, no pneumothorax [facility] [address] [place] [address] XRay Report Signed Patient: CHILANGO LOPEZ MR#: [id number] : 1950 Acct:[id number] Age/Sex: 70 / F ADM Date: 10/09/21 Loc: ED Attending Dr: Ordering Physician: KRISTINE WANG MD Date of Service: 10/09/21 Procedure(s): XR chest 1V ap Accession Number(s): [id number] cc: KRISTINE WANG MD Fluoro Time In Minutes: CHEST 1 VIEW INDICATION: Wheezing. COMPARISON: 05/21/2021 FINDINGS: Support devices: None. Heart: Within normal limits. Lungs/Pleura: Moderate emphysematous changes are again noted. The lungs are clear otherwise. No pneumothorax. Additional findings: None. IMPRESSION: No acute findings. Emphysematous changes. No change since 05/13/2021. Signer Name: Dre Rai Jr, MD Signed: 10/09/2021 7:36 AM Workstation Name: [id number] Transcribed By: TTR Dictated By: DRE RAI JR, MD Electronically Authenticated By: DRE RAI JR, MD Signed Date/Time: 10/09/21735 DD/ 4 TD/TT: - Differential Diagnosis COPD exacerbation Critical care attestation.: If time is entered above; I have spent that time in minutes in the direct care of this critically ill patient, excluding procedure time. ED Disposition Clinical Impression: COPD exacerbation, Bronchitis Disposition: 09 ADMITTED INPATIENT Is pt being admited?: No Does the pt Need Aspirin: No Condition: Stable Instructions: Chronic Obstructive Pulmonary Disease (ED), Chronic Bronchitis (ED), Chronic Obstructive Pulmonary Disease Exacerbation, [id number] Additional Instructions: Return to the emergency department should you develop worsening symptoms, inability to tolerate food or liquids, high fever or any other concerns Prescriptions: Prednisone [predniSONE 10 mg (6-Day Pack, 21 Tabs)] 10 mg PO .TAPER #1 Albuterol Mdi (or & Nicu Only) [ProAir HFA Inhaler] 2 puff IH QID PRN #8.5 gram PRN Reason: Shortness Of Breath Azithromycin [Zithromax Z-CHRISTINE] 0 mg PO DAILY #6 tab Referrals: PRIMARY CARE, [Primary Care Provider] - 3-5 Days HERNANDEZ,LISA R, MD [Staff Physician] - 3-5 Days (Dr. Hernandez is a hourly sign language interpreter. Please follow-up with him if you do not have your own hourly sign language interpreter) Time of Disposition: 11:31
--- NOTE | 2021-10-09 07:40 | XRay Report ---
CHEST 1 VIEW INDICATION: Wheezing. COMPARISON: 05/21/2021 FINDINGS: Support devices: None. Heart: Within normal limits. Lungs/Pleura: Moderate emphysematous changes are again noted. The lungs are clear otherwise. No pneum othorax. Additional findings: None. IMPRESSION: No acute findings. Emphysematous changes. No change since 05/13/2021. Signer Name: Dre Rai Jr, MD Signed: 10/09/2021 7:36 AM Workstation Name: [id number]
[2021-10-09 13:57] VITALS: BP 109/47
== END 2021-10-09 14:30 | disposition admitted as inpatient to this hospital (09) ==
LOC: ED 04:52
DX: R06.00 Dyspnea, unspecified (principal); J44.1 Chronic obstructive pulmonary disease with (acute) exacerbation; J40 Bronchitis, not specified as acute or chronic
CPT/HCPCS: 71045; 94640; 96365; 99284; J3475; 94644